=== PATIENT | male | born 1965 | race African-American/Black ===

== ENCOUNTER 2024-11-27 03:42 | Emergency (ER) | payer OTHER, SELFPAY ==
[2024-11-27 03:44] VITALS: BP 155/105; PULSE 98; RESP 18; TEMP 36.5; O2SAT 96
[2024-11-27] MEDS: Lidocaine Jelly 2% 20 ML Syringe (URO-JET) 1 APPLIC TOPICAL (04:17)
--- NOTE | 2024-11-27 04:21 | EX.ED.GUMALE ---
HPI History of Present Illness Chief Complaint: Complaint Informant: patient Narrative Narrative: Presents urine retention. History of BPH followed by [facility]. He had his Barrera bag removed yesterday per his request and wanting to try self straight cath. There is plans for surgery for his prostate in December. Spouse helping cath at 2 PM he emptied. He tried again tonight is unable to do it therefore he came here. Feels pressure in his suprapubic. No fevers. No vomiting. Prior similar symptoms: Yes PFSH PFSH Allergy/AdvReac Type Severity Reaction Status Date / Time No Known Allergies Allergy Verified 11/27/24 03:44 Social History Smoking Status: Never smoker ROS ROS ED Constitutional Constitutional ED: Denies fever(s) Cardiovascular Cardiovascular: Denies chest pain Respiratory/Chest Respiratory/Chest: Denies cough Gastrointestinal Gastrointestinal: Denies diarrhea or vomiting Genitourinary Genitourinary ED: Reports other Details: Urine retention Musculoskeletal Musculoskeletal: Denies none Integumentary Denies rash or wounds Neurologic Neurologic: Denies weakness EXAM Physical Exam Const Vital Signs: 11/27/24 03:44 Temperature 97.7 F L Temperature Source Oral Pulse Rate 98 Respiratory Rate 18 Blood Pressure 155/105 H Blood Pressure Mean 121 Pulse Ox 96 Oxygen Delivery Method Room Air Positive well nourished and well developed Constitutional Narrative: Nontoxic stones 500 came point spasm General Appearance ED: well developed HEENT normocephalic and atraumatic Eyes General Eye ED: Yes normal appearance of both eyes Neck full ROM Resp normal respiratory effort and normal air movement Cardio regular rate and regular rhythm GI soft to palpation GI Narrative: Mild suprapubic pressure. Extremity normal to inspection and full ROM Neuro oriented x3 Skin no rashes or lesions noted and no wounds MDM MDM MDM Narrative Medical decision making narrative: Interventions / MDM: Differential diagnosis: Acute urine retention, history of BPH Diagnosis considered but do not suspect: N/A My EKG interpretation: N/A Imaging independently reviewed and interpreted by myself: N/A External documents reviewed: N/A Test considered but not ordered:N/A ED course: Patient known large prostate Barrera removed yesterday at the [facility]. Unable to self cath tonight. Last emptying was over 12 hours ago. Barrera catheter ordered. 493 mL output 16 [place] catheter was placed. He is clinically feeling better. Preparations were discharged with leg bag. 0422: Urine is emptying he was complaining of increasing burning discomfort. Likely bladder spasms will treat with Levsin and reevaluate. 0444: Prior to medicines being available symptoms settle down. Patient states he is ready to go home. Will be discharged with a leg bag and follow-up with his urologist at the [facility]. Re-evaluation: stable Disposition discussed with patient/family/significant other: Patient Case discussed with consulting clinician: N/A This note was generated with [employer] dictation software. It may contain incorrect words, spelling, and punctuation that were not noted in checking the note before signing. Discharge Plan Triage Chief Complaint: Complaint ED Provider: Boyd Khalil Dx/Rx/DC Orders Clinical Impression: Acute retention of urine, History of BPH Instructions: ED Barrera Catheter, Care, ED Urinary Retention, Male Primary Care Provider: [facility] Activity Restrictions/Additional Instructions: Barrera was placed. Continue your Flomax. [facility]. Print Language: Stateless Disposition Disposition: Home, Self Care
[2024-11-27] MEDS: Hyoscyamine Sulfate 0.125 MG Tablet 0.25 MG SL (04:57)
[2024-11-27 05:02] VITALS: BP 150/98; PULSE 79; RESP 18; TEMP 36.7; O2SAT 98
--- NOTE | 2024-11-27 05:02 | ED.RN ---
pt stated he wanted the Levsin after all.
== END 2024-11-27 05:03 | disposition home or self-care (01) ==
PROVIDERS: Emergency Provider Emergency Medicine; Visit Provider Emergency Medicine
DX: N40.1 Benign prostatic hyperplasia with lower urinary tract symptoms (principal); R33.9 Retention of urine, unspecified
CPT/HCPCS: 51702; 99283